=== PATIENT | male | born 1955 | race African-American/Black ===

== ENCOUNTER 2016-06-16 09:33 | Day surgery (SDC) | payer BC ==
[~2016-06-16] VITALS: Ht 175.3 cm; Wt 147.5 kg
[~2016-06-16 09:33] MED LIST: AMLODIPINE BESY10 MG PO; ENALAPRIL MALEAT5 MG PO; JANUMET 50/51 TABLET PO; LIPITOR80 MG PO; LUNESTA3 MG PO; VITAMIN D-32000 UNI2 PO
[2016-06-16 10:13] VITALS: BP 137/73
[2016-06-16 10:18] LABS: POINT-OF-CARE METER ID UU14174212
[2016-06-16] MEDS ORDERED: PERCOCET 5/31 TABLET PO (12:46)
[2016-06-16 13:09] LABS: POINT-OF-CARE METER ID UU13113675
[2016-06-16 13:24] VITALS: BP 162/61
[2016-06-16 14:35] VITALS: BP 118/62
[2016-06-16 14:50] VITALS: BP 137/80
== END 2016-06-16 15:03 | disposition home or self-care (01) ==
LOC: SDC 09:33
PROVIDERS: Surgery
PROC: 0DBQ7ZZ Excision of Anus, Via Natural or Artificial Opening (ICD-10-PCS; principal; 2016-06-16)
DX: A63.0 Anogenital (venereal) warts (principal); K64.4 Residual hemorrhoidal skin tags; Z86.010 Personal history of colon polyps; I10 Essential (primary) hypertension; E78.5 Hyperlipidemia, unspecified; E66.01 Morbid (severe) obesity due to excess calories; Z68.42 Body mass index [BMI] 45.0-49.9, adult; E11.9 Type 2 diabetes mellitus without complications; Z79.84 Long term (current) use of oral hypoglycemic drugs; Z82.49 Family history of ischemic heart disease and other diseases of the circulatory system
CPT/HCPCS: 82948; 88304; J0690; J2250; J2405; J3010